=== PATIENT | male | born 1940 | race Caucasian/White ===

== ENCOUNTER 2017-04-07 22:21 | Inpatient (IN) | payer MEDICARE ==
[~2017-04-07 22:21] MED LIST: ASPIRIN ADULT L81 M1 PO; KEFLEX500 MG PO; LOPRESSOR25 MG PO; NKHM; PRILOSEC20 MG PO; TYLENOL325 M1 PO
[2017-04-07 23:05] LABS: BASO % 0.3 % (0.0-1.0); EOS # 0.1 10*3/uL (0.0-0.4); EOS % 0.9 % (1.0-4.0); HEMATOCRIT 47.6 % (42.0-52.0); HEMOGLOBIN 15.8 g/dl (14.0-18.0); LYMPH # 1.1 10*3/uL (1.3-4.4); LYMPH % 14.2 % (27.0-41.0); MEAN CORPUSCULAR HGB 28.2 pg (27.0-31.0); MEAN CORPUSCULAR HGB CONC 33.2 g/dl (33.0-37.0); MEAN PLATELET VOLUME 9.8 fl (9.6-12.3); MONO # 0.4 10*3/uL (0.1-1.0); MONO % 5.7 % (3.0-9.0); NEUT # 5.9 10*3/uL (2.3-7.9); NEUT % 78.5 % (47.0-73.0); PLATELET COUNT AUTOMATED 188 10*3/uL (130-400); RED CELL DISTRI WIDTH 13.2 % (0-14.5); WHITE BLOOD COUNT 7.5 10*3/uL (4.8-10.8)
[2017-04-07 23:15] LABS: ACT PARTIAL THROMBO TIME 25.4 SECONDS (20.8-31.5)
[2017-04-07 23:27] LABS: ALBUMIN 3.6 gm/dl (3.1-4.5); ALKALINE PHOSPHATASE 58 U/L (45-117); BUN 16 mg/dl (7-24); CHLORIDE 109 mmol/L (98-107); CREATININE 1.05 mg/dL (0.70-1.30); LIPASE 125 U/L (73-393); MAGNESIUM 2.6 mg/dL (1.5-2.1); SGOT/AST 20 IU/L (3-35); SGPT/ALT 21 U/L (12-78); SODIUM 140 mmol/L (136-145); TOTAL PROTEIN 7.7 gm/dL (6.4-8.2); TROPONIN I < 0.015 ng/ml (<0.045)
--- NOTE | 2017-04-07 23:53 | NUR ---
computers down unable to scan
--- NOTE | 2017-04-08 01:30 | NUR ---
A 76, admitted to 5E, under the services of SILVINA Dejesus DO with a diagnosis of HYPERTENSIVE CRISIS. Chief complaint is ABDOMINAL PAIN. Patient arrived via stretcher from ER. Monitor applied. Initial assessment completed. Vital signs taken and recorded. SILVINA DEJESUS DO notified of admission to the unit. Orders received. See assessment for past medical history, medications and allergies. Patient and/or family oriented to unit. [address] visitation policy reviewed. Medical Rec completed. Clothing/patient valuable form completed. TRAY ALVES
[2017-04-08 02:31] VITALS: BP 169/84
[2017-04-08] MEDS ORDERED: ZANTAC 7575 M1 PO (02:40)
--- NOTE | 2017-04-08 04:44 | NUR ---
[facility] REFER TO PAPER MAR AND WRITTEN PROGRESS NOTES.
[2017-04-08 06:15] LABS: BASO % 0.2 % (0.0-1.0); EOS % 0.3 % (1.0-4.0); HEMATOCRIT 45.9 % (42.0-52.0); HEMOGLOBIN 15.6 g/dl (14.0-18.0); LYMPH # 1.3 10*3/uL (1.3-4.4); LYMPH % 12.8 % (27.0-41.0); MEAN CELL VOLUME 84.7 fl (80.0-94.0); MEAN CORPUSCULAR HGB 28.8 pg (27.0-31.0); MEAN PLATELET VOLUME 9.6 fl (9.6-12.3); MONO # 0.6 10*3/uL (0.1-1.0); MONO % 6.2 % (3.0-9.0); NEUT # 8.1 10*3/uL (2.3-7.9); NEUT % 80.2 % (47.0-73.0); PLATELET COUNT AUTOMATED 193 10*3/uL (130-400); RED BLOOD COUNT 5.42 10*6/uL (4.50-5.90); RED CELL DISTRI WIDTH 13.3 % (0-14.5); WHITE BLOOD COUNT 10.1 10*3/uL (4.8-10.8)
[2017-04-08 06:41] LABS: BUN 12 mg/dl (7-24); CHLORIDE 107 mmol/L (98-107); CHOLESTEROL 234 mg/dL (<200); CREATININE 0.91 mg/dL (0.70-1.30); HDL CHOLESTEROL 38 mg/dl (40-60); LDL CHOLESTEROL 163 mg/dL (9-159); POTASSIUM 3.8 mmol/L (3.5-5.1); SODIUM 139 mmol/L (136-145); TRIGLYCERIDES 167 mg/dl (<150); VLDL CHOLESTEROL 33 mg/dL (6-40)
[2017-04-08 07:26] LABS: VITAMIN D, 25-HYDROXY 32.3 ng/mL (30-100)
[2017-04-08 07:50] LABS: ACT PARTIAL THROMBO TIME 25.1 SECONDS (20.8-31.5)
[2017-04-08 08:00] VITALS: BP 140/84
--- NOTE | 2017-04-08 09:27 | NUR ---
PATIENT RESTING IN ROOM WITH AT BEDSIDE. COMPLAINS OF "SLIGHT HEADACHE" BUT DID NOT WANT ANY MEDICINE FOR IT. NO SXS OF DISTRESS. RESPIRATIONS EASY/REGULAR. CALL LIGHT IS IN REACH. WILL MONITOR.
[2017-04-08 11:15] LABS: BILIRUBIN NEGATIVE (NEGATIVE); BLOOD TRACE-INTACT (NEGATIVE); CLARITY CLEAR (CLEAR); COLOR YELLOW (YELLOW); GLUCOSE NEGATIVE (NEGATIVE); KETONE NEGATIVE (NEGATIVE); LEUKO ESTERASE NEGATIVE (NEGATIVE); NITRITE NEGATIVE (NEGATIVE); UROBILINOGEN 0.2 E.U./dl (0.2-1.0)
[2017-04-08 11:23] LABS: EPITHELIAL CELLS 0-2
[2017-04-08 12:00] VITALS: BP 135/70
--- NOTE | 2017-04-08 12:00 | NUR ---
FAMILY AT BEDSIDE, NO SXS OF DISTRESS, NO VOICED COMPLAINTS. PLEASANT/COOPERATIVE WITH CARE. CALL LIGHT IN REACH.
--- NOTE | 2017-04-08 15:00 | NUR ---
PATIENT RESTING IN ROOM WITH FAMILY MEMBERS AT BEDSIDE. STATES HE IS READY TO GO HOME. NO VOICED COMPLAINTS AT THIS TIME. NO SXS OF DISTRESS. CALL LIGHT IN REACH.
[2017-04-08 16:00] VITALS: BP 120/67
--- NOTE | 2017-04-08 17:52 | NUR ---
PATIENT STATES HE IS GETTING RESTLESS BECAUSE HE WANTS TO LEAVE. SAYS HE IS NOT USED TO LAYING AROUND. I ADVISED HIM HE COULD GET UP AND WALK AROUND THE HALLS. PATIENT STATES HE THINKS THAT MIGHT HELP TO GET MOVING. PLEASANT/COOPERATIVE. FAMILY IS AT BEDSIDE.
--- NOTE | 2017-04-08 18:16 | NUR ---
MED REC UPDATED VIA LIST FROM PATIENT. [facility] DID NOT HAVE INFORMATION ON THIS PATIENT AND HE STAES HE HAS NOT HAD ANY MEDICINE FILLED IN YEARS.
[2017-04-08 20:00] VITALS: BP 115/65
--- NOTE | 2017-04-08 20:00 | NUR ---
IN BED AWAKE ALERT AND ORIENTED X3, NO S/S OF DISTRESS. WILL CONT TO MONITOR. CALL LIGHT IN REACH. SEE ASSESS.
[2017-04-09] VITALS: BP 108/60
[2017-04-09 07:59] VITALS: BP 126/69
[2017-04-09] MEDS ORDERED: PANTOPRAZOLE SO40 MG PO (11:37)
[2017-04-09] MEDS ORDERED: LISINOPRIL10 M1 PO ×2 (11:37)
[2017-04-09] MEDS ORDERED: ATORVASTATIN CA20 M1 PO (11:37)
--- NOTE | 2017-04-09 12:12 | NUR ---
Discharge instructions reviewed with patient/family. Patient receptive and verbalizes understanding. Follow-up care arranged. Written instructions given to patient/family. CURT GALEANA
== END 2017-04-09 12:10 | disposition home or self-care (01) | DRG 445 ==
LOC: ED 22:21 → EDHOLD 04-08 00:15 → 5E 04-08 00:33
PROVIDERS: Internal Medicine; Student in an Organized Health Care Education/Training Program; ADMIT Internal Medicine
DX: K80.20 Calculus of gallbladder without cholecystitis without obstruction (principal); I16.1 Hypertensive emergency; E83.41 Hypermagnesemia; I10 Essential (primary) hypertension; E78.5 Hyperlipidemia, unspecified; R73.9 Hyperglycemia, unspecified; N28.1 Cyst of kidney, acquired; K57.30 Diverticulosis of large intestine without perforation or abscess without bleeding; N40.0 Benign prostatic hyperplasia without lower urinary tract symptoms; Z87.11 Personal history of peptic ulcer disease; Z79.82 Long term (current) use of aspirin; Z79.899 Other long term (current) drug therapy

== ENCOUNTER → 2017-04-13 | Outpatient (CLI) | payer MEDICARE ==
[~2017-04-13] MED LIST changes: +ATORVASTATIN CA20 M1 PO; +LISINOPRIL10 M1 PO; +PANTOPRAZOLE SO40 MG PO; +ZANTAC 7575 M1 PO
== END | disposition home or self-care (01) ==
LOC: RESCLI 09:21
DX: I10 Essential (primary) hypertension (principal); N40.1 Benign prostatic hyperplasia with lower urinary tract symptoms; R39.16 Straining to void; K21.9 Gastro-esophageal reflux disease without esophagitis; E78.5 Hyperlipidemia, unspecified

== ENCOUNTER → 2017-04-25 | Outpatient (CLI) | payer MEDICARE | END | disposition home or self-care (01) | LOC: RESCLI 09:25 | DX: I10 Essential (primary) hypertension (principal); N40.1 Benign prostatic hyperplasia with lower urinary tract symptoms; K21.9 Gastro-esophageal reflux disease without esophagitis; E78.5 Hyperlipidemia, unspecified ==

== ENCOUNTER → 2017-04-27 | Outpatient (CLI) | payer MEDICARE | END | disposition home or self-care (01) | LOC: LAB 09:59 | DX: Z12.5 Encounter for screening for malignant neoplasm of prostate (principal) ==

== ENCOUNTER → 2017-05-25 | Outpatient (CLI) | payer MEDICARE | LOC: RESCLI 01:11 | DX: I10 Essential (primary) hypertension (principal); E66.3 Overweight; N40.1 Benign prostatic hyperplasia with lower urinary tract symptoms; K21.9 Gastro-esophageal reflux disease without esophagitis; K80.20 Calculus of gallbladder without cholecystitis without obstruction; E78.5 Hyperlipidemia, unspecified ==

== ENCOUNTER → 2017-06-20 | Outpatient (CLI) | payer MEDICARE | END | disposition home or self-care (01) | LOC: RESCLI 03:51 | DX: K57.30 Diverticulosis of large intestine without perforation or abscess without bleeding (principal); K80.20 Calculus of gallbladder without cholecystitis without obstruction; E66.3 Overweight; E78.5 Hyperlipidemia, unspecified; I10 Essential (primary) hypertension; K21.9 Gastro-esophageal reflux disease without esophagitis; R39.16 Straining to void; N40.1 Benign prostatic hyperplasia with lower urinary tract symptoms ==

== ENCOUNTER 2021-07-26 19:27 | Emergency (ER) | payer MEDICARE ==
[~2021-07-26] VITALS: Ht 177.8 cm; Wt 93.0 kg
[2021-07-26 19:55] VITALS: BP 180/100
== END 2021-07-27 00:20 | disposition short-term general hospital (02) ==
LOC: ED 19:27
DX: H54.62 Unqualified visual loss, left eye, normal vision right eye (principal)

== ENCOUNTER → 2021-08-25 | Outpatient (CLI) | payer MEDICARE ==
[2021-08-25 16:00] LABS: HEMATOCRIT 47.1 % (42.0-52.0); MEAN CELL VOLUME 84.9 fl (80.0-94.0); MEAN CORPUSCULAR HGB 28.3 pg (27.0-31.0); MEAN CORPUSCULAR HGB CONC 33.3 g/dl (33.0-37.0); MEAN PLATELET VOLUME 9.6 fl (9.6-12.3); PLATELET COUNT AUTOMATED 212 10*3/uL (130-400); RED BLOOD COUNT 5.55 10*6/uL (4.50-5.90); RED CELL DISTRI WIDTH 12.5 % (0-14.5); RETICULOCYTE % 1.42 % (0.50-2.50)
[2021-08-25 16:06] LABS: BILIRUBIN Negative (Negative); BLOOD Trace-Lysed (Negative); CLARITY Clear (Clear); COLOR Yellow (Yellow); GLUCOSE Negative (Negative); KETONE Negative (Negative); LEUKO ESTERASE Negative (Negative); NITRITE Negative (Negative); SPECIFIC GRAVITY 1.015 (1.001-1.030); UROBILINOGEN 0.2 E.U./dl (0.0-1.0)
[2021-08-25 16:17] LABS: ALBUMIN 3.1 gm/dl (3.1-4.5); CHLORIDE 107 mmol/L (98-107); POTASSIUM 3.8 mmol/L (3.5-5.1); SODIUM 142 mmol/L (136-145)
[2021-08-25 16:19] LABS: BACTERIA TRACE; EPITHELIAL CELLS 0-2; MUCOUS TRACE; RBC 0-2 rbc/hpf (0-2); WBC 0-2 wbc/hpf (0-5)
[2021-08-25 16:45] LABS: ALKALINE PHOSPHATASE 68 U/L (45-117); BUN 16 mg/dl (7-24); CHOLESTEROL 133 mg/dL (<200); CPK 94 U/L (39-308); GAMMA GLUTAMYL TRANSPEPTIDASE 21 U/L (15-85); IRON 49 ug/dL (65-175); LDL CHOLESTEROL 65 mg/dL (9-159); SGOT/AST 19 IU/L (3-35); SGPT/ALT 28 U/L (12-78); T3 UPTAKE 34 % (31-39); THYROXINE (T4) TOTAL 8.2 ug/dl (4.5-12.1); TOTAL IRON BINDING CAPACITY 280 ug/dl (250-450); TOTAL PROTEIN 7.6 gm/dL (6.4-8.2); TRIGLYCERIDES 158 mg/dl (<150); URIC ACID 4.9 mg/dL (3.5-7.2)
[2021-08-25 16:54] LABS: FERRITIN 244.8 ng/mL (22.0-322.0); VITAMIN D, 25-HYDROXY 30.2 ng/mL (30-100)
[2021-08-26 07:06] LABS: TOTAL PROTEIN, SERUM 6.7 g/dL (6.0-8.5)
[2021-08-26 08:07] LABS: RHEUMATOID ARTHRITIS FACTOR <10.0 IU/mL (<14.0)
[2021-08-26 08:59] LABS: ATYPICAL LYMPHS 3 % (0-0); BURR CELLS FEW; PLATELET SUFFICIENCY NORMAL (NORMAL); TOTAL CELLS COUNTED 100 #CELLS
[2021-08-26 13:07] LABS: A/G RATIO 0.6 (0.7-1.7); ALBUMIN 2.5 g/dL (2.9-4.4); ALPHA-1-GLOBULIN 0.3 g/dL (0.0-0.4); ALPHA-2-GLOBULIN 0.8 g/dL (0.4-1.0); BETA GLOBULIN 1.1 g/dL (0.7-1.3); GAMMA GLOBULIN 2.1 g/dL (0.4-1.8); GLOBULIN, TOTAL 4.2 g/dL (2.2-3.9); M-SPIKE Not Observed g/dL (Not Observed)
[2021-08-26 14:08] LABS: ANTI-DSDNA ANTIBODIES 1 IU/mL (0-9)
== END ==
LOC: LAB 15:28
PROVIDERS: ATTEND Family Medicine
DX: E55.9 Vitamin D deficiency, unspecified (principal); R79.89 Other specified abnormal findings of blood chemistry; R53.83 Other fatigue; Z12.5 Encounter for screening for malignant neoplasm of prostate; E78.5 Hyperlipidemia, unspecified

== ENCOUNTER → 2021-08-31 | Outpatient (CLI) | payer MEDICARE | END | disposition home or self-care (01) | LOC: CT 06:52 | PROVIDERS: ATTEND Family Medicine | DX: J84.10 Pulmonary fibrosis, unspecified (principal); R91.1 Solitary pulmonary nodule ==

== ENCOUNTER → 2022-06-22 | Outpatient (CLI) | payer MEDICARE ==
[2022-06-22 10:10] LABS: BILIRUBIN Negative (Negative); BLOOD Negative (Negative); CLARITY Clear (Clear); COLOR Yellow (Yellow); GLUCOSE Negative (Negative); KETONE Negative (Negative); LEUKO ESTERASE Negative (Negative); NITRITE Negative (Negative); PH 5.5 (4.5-8.0); SPECIFIC GRAVITY 1.015 (1.001-1.030)
[2022-06-22 10:10] LABS: HEMATOCRIT 46.8 % (42.0-52.0); MEAN CELL VOLUME 85.1 fl (80.0-94.0); MEAN CORPUSCULAR HGB 28.5 pg (27.0-31.0); MEAN CORPUSCULAR HGB CONC 33.5 g/dl (33.0-37.0); MEAN PLATELET VOLUME 9.8 fl (9.6-12.3); PLATELET COUNT AUTOMATED 190 10*3/uL (130-400); RED CELL DISTRI WIDTH 13.4 % (0-14.5); RETICULOCYTE % 1.53 % (0.50-2.50); WHITE BLOOD COUNT 6.7 10*3/uL (4.8-10.8)
[2022-06-22 10:26] LABS: CHLORIDE 110 mmol/L (98-107); POTASSIUM 3.9 mmol/L (3.5-5.1); SODIUM 143 mmol/L (136-145)
[2022-06-22 10:47] LABS: ALKALINE PHOSPHATASE 83 U/L (45-117); BUN 16 mg/dl (7-24); CHOLESTEROL 146 mg/dL (<200); CREATININE 0.99 mg/dL (0.70-1.30); GAMMA GLUTAMYL TRANSPEPTIDASE 20 U/L (15-85); IRON 68 ug/dL (65-175); LDL CHOLESTEROL 70 mg/dL (9-159); SGOT/AST 18 IU/L (3-35); SGPT/ALT 24 U/L (12-78); TOTAL PROTEIN 7.4 gm/dL (6.4-8.2); TRIGLYCERIDES 220 mg/dl (<150)
[2022-06-22 10:50] LABS: BASOPHILS 1 % (0-1); OVALOCYTES FEW; PLATELET SUFFICIENCY NORMAL (NORMAL); POLYCHROMASIA SLIGHT; TOTAL CELLS COUNTED 100 #CELLS
[2022-06-22 11:18] LABS: VITAMIN D, 25-HYDROXY 34.7 ng/mL (30-100)
[2022-06-22 11:54] LABS: FERRITIN 161.8 ng/mL (22.0-322.0)
[2022-06-23 15:06] LABS: ALBUMIN 3.5 g/dL (2.9-4.4); ALPHA-1-GLOBULIN 0.3 g/dL (0.0-0.4); ALPHA-2-GLOBULIN 0.8 g/dL (0.4-1.0); GAMMA GLOBULIN 1.3 g/dL (0.4-1.8); GLOBULIN, TOTAL 3.4 g/dL (2.2-3.9); M-SPIKE Not Observed g/dL (Not Observed)
[2022-06-23 15:24] LABS: TOTAL PROTEIN, SERUM 6.9 g/dl
== END ==
LOC: LAB 09:36
PROVIDERS: ATTEND Family Medicine
DX: Z12.5 Encounter for screening for malignant neoplasm of prostate (principal); R53.83 Other fatigue; E55.9 Vitamin D deficiency, unspecified; E78.5 Hyperlipidemia, unspecified; R79.89 Other specified abnormal findings of blood chemistry

== ENCOUNTER → 2022-08-30 | Outpatient (CLI) | payer MEDICARE ==
[2022-08-30 10:32] LABS: BASO % 0.2 % (0.0-1.0); EOS # 0.2 10*3/uL (0.0-0.4); EOS % 4.1 % (1.0-4.0); LYMPH # 1.4 10*3/uL (1.3-4.4); LYMPH % 24.4 % (27.0-41.0); MEAN CELL VOLUME 86.6 fl (80.0-94.0); MEAN CORPUSCULAR HGB CONC 33.5 g/dl (33.0-37.0); MEAN PLATELET VOLUME 9.7 fl (9.6-12.3); MONO # 0.5 10*3/uL (0.1-1.0); MONO % 8.6 % (3.0-9.0); NEUT # 3.5 10*3/uL (2.3-7.9); NEUT % 62.5 % (47.0-73.0); PLATELET COUNT AUTOMATED 208 10*3/uL (130-400); RED BLOOD COUNT 5.31 10*6/uL (4.50-5.90); RED CELL DISTRI WIDTH 13.6 % (0-14.5); RETICULOCYTE % 1.41 % (0.50-2.50); WHITE BLOOD COUNT 5.6 10*3/uL (4.8-10.8)
[2022-08-30 10:42] LABS: BILIRUBIN Negative (Negative); BLOOD Negative (Negative); CLARITY Clear (Clear); COLOR Yellow (Yellow); GLUCOSE Negative (Negative); KETONE Negative (Negative); LEUKO ESTERASE Negative (Negative); NITRITE Negative (Negative)
[2022-08-30 10:53] LABS: ALKALINE PHOSPHATASE 36 U/L (46-116); BUN 18 mg/dl (9-23); CHLORIDE 106 mmol/L (98-107); CHOLESTEROL 143 mg/dL (<200); CPK 110 U/L (34-171); GAMMA GLUTAMYL TRANSPEPTIDASE 15 U/L (0-73); LDL CHOLESTEROL 77 mg/dL (9-159); POTASSIUM 3.8 mmol/L (3.4-5.1); SGPT/ALT 22 U/L (10-49); THYROID STIM HORMONE (HS) 3.492 uIU/ml (0.550-4.780); TOTAL PROTEIN 7.2 gm/dL (6.0-8.0); TRIGLYCERIDES 167 mg/dl (<150)
[2022-08-30 11:03] LABS: BACTERIA 1+
== END | disposition home or self-care (01) ==
LOC: LAB 09:59
PROVIDERS: ATTEND Family Medicine
DX: Z12.5 Encounter for screening for malignant neoplasm of prostate (principal); R79.89 Other specified abnormal findings of blood chemistry; R53.83 Other fatigue; E78.5 Hyperlipidemia, unspecified

== ENCOUNTER → 2023-11-11 | Outpatient (CLI) | payer MEDICARE ==
[2023-11-11 13:14] LABS: BILIRUBIN Negative (Negative); BLOOD Negative (Negative); CLARITY Clear (Clear); COLOR Yellow (Yellow); GLUCOSE Negative (Negative); KETONE Negative (Negative); LEUKO ESTERASE 1+ (Negative); NITRITE Negative (Negative); PH 6.5 (4.5-8.0)
[2023-11-11 13:23] LABS: WBC 16-20 wbc/hpf (0-5)
[2023-11-11 13:38] LABS: BASO % 0.4 % (0.0-1.0); EOS # 0.2 10*3/uL (0.0-0.4); EOS % 4.3 % (1.0-4.0); HEMATOCRIT 45.7 % (42.0-52.0); LYMPH # 1.1 10*3/uL (1.3-4.4); LYMPH % 24.5 % (27.0-41.0); MEAN CELL VOLUME 89.4 fl (80.0-94.0); MEAN CORPUSCULAR HGB 28.8 pg (27.0-31.0); MEAN CORPUSCULAR HGB CONC 32.2 g/dl (33.0-37.0); MONO # 0.6 10*3/uL (0.1-1.0); MONO % 12.7 % (3.0-9.0); NEUT # 2.7 10*3/uL (2.3-7.9); NEUT % 57.9 % (47.0-73.0); PLATELET COUNT AUTOMATED 196 10*3/uL (130-400); RED BLOOD COUNT 5.11 10*6/uL (4.50-5.90); RED CELL DISTRI WIDTH 13.2 % (0-14.5); RETICULOCYTE % 1.51 % (0.50-2.50); WHITE BLOOD COUNT 4.7 10*3/uL (4.8-10.8)
[2023-11-11 14:18] LABS: ALKALINE PHOSPHATASE 35 U/L (46-116); BUN 17 mg/dl (9-23); CHLORIDE 109 mmol/L (98-107); CHOLESTEROL 143 mg/dL (<200); GAMMA GLUTAMYL TRANSPEPTIDASE 21 U/L (0-73); LDL CHOLESTEROL 84 mg/dL (9-159); POTASSIUM 3.9 mmol/L (3.4-5.1); SGPT/ALT 20 U/L (5-49); T3 UPTAKE 29.1 % (22.4-36.7); THYROXINE (T4) TOTAL 5.5 ug/dl (4.5-10.9); TOTAL PROTEIN 7.3 gm/dL (6.0-8.0); TRIGLYCERIDES 117 mg/dl (<150)
[2023-11-11 16:20] LABS: VITAMIN D, 25-HYDROXY 24.9 ng/mL (30-100)
== END | disposition home or self-care (01) ==
LOC: LAB 12:47
PROVIDERS: ATTEND Family Medicine
DX: E55.9 Vitamin D deficiency, unspecified (principal); R53.83 Other fatigue; R79.89 Other specified abnormal findings of blood chemistry; E78.5 Hyperlipidemia, unspecified

== ENCOUNTER → 2024-11-29 | Outpatient (CLI) | payer MEDICARE ==
[~2024-11-29] MED LIST changes: +ASPIRIN ADULT L81 M2 PO; +ATORVASTATIN CA80 M1 PO; +CLOPIDOGREL75 MG PO; +FENOFIBRATE160 MG PO; +Regadenoson 0.4 MG/5 ML SYR IV ONE
== END | disposition home or self-care (01) ==
LOC: CARD 01:59
PROVIDERS: ATTEND Internal Medicine Cardiovascular Disease
DX: Z01.810 Encounter for preprocedural cardiovascular examination (principal); I10 Essential (primary) hypertension; E78.2 Mixed hyperlipidemia; C34.92 Malignant neoplasm of unspecified part of left bronchus or lung; R06.02 Shortness of breath

== ENCOUNTER 2025-01-03 07:45 | Emergency (ER) | payer MEDICARE ==
[~2025-01-03] VITALS: Ht 170.1 cm; Wt 90.7 kg
[~2025-01-03 07:45] MED LIST changes: -Regadenoson 0.4 MG/5 ML SYR IV ONE
[2025-01-03 07:56] VITALS: BP 139/80
[2025-01-03] MEDS ORDERED: Oxymetazoline Hydrochloride Nasal 15 ml bottle NAS ONE (08:00)
== END 2025-01-03 08:32 | disposition home or self-care (01) ==
LOC: ED 07:45
DX: R04.0 Epistaxis (principal); I10 Essential (primary) hypertension; Z79.899 Other long term (current) drug therapy; Z98.890 Other specified postprocedural states